=== PATIENT | female | born 1955 | race Caucasian/White ===

== ENCOUNTER → 2016-09-21 | Outpatient (CLI) | payer BC, OTHER ==
[~2016-09-21] MED LIST: CEPH-368 PO; CEPH-375 PO; FURO80TA3 PO; LEFL20TA16 PO; METH4TAB7 PO; MORP20CA17 PO; Morphine IR PO; OXYC5TAB3 PO; PANT40TA5 PO; SULF1TAB24 PO; THYR15TA PO; [UNRECOGNIZED DRUG - OTHER]; [UNRECOGNIZED DRUG - OTHER] PO; calcitriol PO; folic acid PO; methotrexate PO; methylphenidate PO; paroxetine PO; vitamin d; xanax PO
== END | disposition home or self-care (01) ==
LOC: CFH 08:42
PROVIDERS: ATTEND Internal Medicine Rheumatology
DX: M13.0 Polyarthritis, unspecified (principal)

== ENCOUNTER → 2017-05-26 | Outpatient (CLI) | payer OTHER | END | disposition home or self-care (01) | LOC: CFH 10:44 | PROVIDERS: ATTEND Internal Medicine Geriatric Medicine | DX: Z12.31 Encounter for screening mammogram for malignant neoplasm of breast (principal); N80.8 Other endometriosis | CPT/HCPCS: 77063; G0202 ==

== ENCOUNTER 2018-12-03 10:05 | Day surgery (SDC) | payer MEDICARE, OTHER ==
[~2018-12-03] VITALS: Ht 160 cm; Wt 60.7 kg
[~2018-12-03 10:05] MED LIST changes: +FENTANYL PF 100 MCG/2ML ONE; +HEPARIN 1,000 UNITS/ML, 10ML ONE; +MIDAZOLAM 1 MG/ML, 2ML ONE
[2018-12-03 11:12] VITALS: BP 146/90
[2018-12-03 11:22] LABS: BASOPHILS # (AUTO) 0.06 x10^3/uL (0-0.1); BASOPHILS % (AUTO) 1 % (0-1); EOSINOPHILS # (AUTO) 0.24 x10^3/uL (0-0.4); EOSINOPHILS % (AUTO) 5 % (1-7); LYMPHOCYTES # (AUTO) 1.22 x10^3/uL (1-3.4); LYMPHOCYTES % (AUTO) 23 % (22-44); MD NO; MEAN CORPUSCULAR HEMOGLOBIN 32.9 pg (27.0-34.8); MEAN CORPUSCULAR HGB CONC 31.9 g/dL (32.4-35.8); MONOCYTES # (AUTO) 0.39 x10^3/uL (0.2-0.8); MONOCYTES % (AUTO) 7 % (2-9); NEUTROPHILS % (AUTO) 64 % (42-75); PLATELET COUNT 241 x10^3/uL (130-400); RED BLOOD COUNT 3.45 x10^6/uL (3.82-5.3); RED CELL DISTRIBUTION WIDTH 18.5 % (9.6-15.2)
[2018-12-03] MEDS ORDERED: LIDOCAINE 2% 100MG/5ML SYRINGE ONE (12:04)
[2018-12-03] MEDS ORDERED: hydrALAzine 20 MG/ML, 1ML IV PRN (12:30)
[2018-12-03] MEDS ORDERED: OXYcodone 5 MG/5 ML ORAL.SOL UDC PO PRN (12:30)
[2018-12-03] MEDS ORDERED: LABETALOL 5MG/ML, 20ML IV PRN (12:30)
[2018-12-03] MEDS ORDERED: HYDROmorphone 2 MG/ML, 1ML IVPush PRN (12:30)
[2018-12-03] MEDS ORDERED: PROMETHAZINE 25 MG/ML, 1ML IV PRN (12:30)
[2018-12-03] MEDS ORDERED: ONDANSETRON ODT 8 MG PO PRN (12:30)
[2018-12-03] MEDS ORDERED: ACETAMINOPHEN 325 MG TABLET PO PRN (12:30)
[2018-12-03] MEDS ORDERED: ONDANSETRON 2MG/ML, 2ML IV PRN (12:30)
[2018-12-03] MEDS ORDERED: PROMETHAZINE 25 MG SUPP PR PRN (12:30)
[2018-12-03] MEDS ORDERED: CEFAZOLIN 1,000 MG ONE (12:34)
[2018-12-03] MEDS ORDERED: FENTANYL PF 100 MCG/2ML ONE ×2 (12:34→13:40)
[2018-12-03] MEDS ORDERED: PROPOFOL 10 MG/ML, 20ML ONE (12:34)
[2018-12-03] MEDS ORDERED: ONDANSETRON 2MG/ML, 2ML ONE (12:34)
[2018-12-03] MEDS ORDERED: DEXAMETHASONE 4 MG/ML, 1ML ONE (12:34)
[2018-12-03] MEDS ORDERED: ACETAMINOPHEN 650 MG/20.3 ML UDC ONE (13:36)
[2018-12-03] MEDS ORDERED: ACETAMINOPHEN 325 MG TABLET ONE (13:37)
[2018-12-03] MEDS: FENTANYL PF 100 MCG/2ML IV PRN ×2 (13:42→13:54)
[2018-12-03] MEDS ORDERED: PROTAMINE SULFATE 10 MG/ML, 5ML ONE (14:15)
== END 2018-12-03 16:05 | disposition home or self-care (01) ==
LOC: OUT 10:05
PROVIDERS: ATTEND Surgery Vascular Surgery
DX: N19 Unspecified kidney failure (principal); K21.9 Gastro-esophageal reflux disease without esophagitis; G89.29 Other chronic pain
CPT/HCPCS: 36415; 36821; 85025; 93005; J0690; J1100; J1644; J2250; J2405; J2704; J2720; J3010